=== PATIENT | female | born 1990 | race American Indian/Alaskan Native ===

== ENCOUNTER 2025-05-14 05:40 | Emergency (ER) | payer SELFPAY ==
[2025-05-14] MEDS ORDERED: Sodium Chloride 0.9% 10 ML Syringe FLUSH PRN (06:04)
[2025-05-14] MEDS: Ondansetron 4 MG/2 ML SDV IVPUSH ONE (06:14)
[2025-05-14 06:17] LABS: BASOPHILS ABSOLUTE AUTO 0.0 K/mm3 (0.0-0.2); BASOPHILS PERCENT AUTO 0.5 % (0.0-1.0); EOSINOPHILS ABSOLUTE AUTO 0.1 K/mm3 (0.0-0.4); EOSINOPHILS PERCENT AUTO 1.4 % (0.0-6.0); IMMATURE GRAN ABSOLUTE AUTO 0.01 K/mm3 (0.00-0.05); IMMATURE GRAN PERCENT AUTO 0.2 % (0.0-0.4); LYMPHOCYTES ABSOLUTE AUTO 2.4 K/mm3 (1.0-4.8); LYMPHOCYTES PERCENT AUTO 36.6 % (24.0-44.0); MEAN PLATELET VOLUME 10.2 fl (9.4-12.3); MONOCYTES ABSOLUTE AUTO 0.4 K/mm3 (0.0-0.8); MONOCYTES PERCENT AUTO 6.5 % (0.0-8.0); NEUTROPHILS ABSOLUTE AUTO 3.6 K/mm3 (1.8-7.7); NEUTROPHILS PERCENT AUTO 54.8 % (41.0-71.0); NRBC ABSOLUTE 0.00 (0.00-0.02); NRBC PERCENT 0.0 % (0.0-0.2); PLATELET COUNT,PLT 338 K/mm3 (150-400); RED BLOOD CELL COUNT 4.13 M/mm3 (4.10-5.30); WHITE BLOOD CELL COUNT,WBC 6.61 K/mm3 (3.9-11.3)
[2025-05-14 06:28] LABS: APPEARANCE,URINE SLT CLOUDY (Clear); GLUCOSE,URINE NEGATIVE (Negative); OCCULT BLOOD,URINE NEGATIVE (Negative)
[2025-05-14 06:41] LABS: A/G RATIO 0.8 (1-2); ALANINE AMINOTRANSFERASE,ALT 24.0 U/L (14-59); ASPARTATE AMNIOTRANSFERASE,AST 19.0 U/L (15-37); BILIRUBIN TOTAL 0.3 mg/dL (0.2-1.0); BLOOD UREA NITROGEN,BUN 13.0 mg/dL (7-18); CARBON DIOXIDE,CO2 25.0 mEq/L (21-32); CHLORIDE,CL 103.0 mEq/L (98-107); CREATININE 0.8 mg/dL (0.55-1.02); EST CRCL DRUG DOSING (CG) 87.48 mL/min; ESTIMATED GFR 98.0 mL/min (>60); GLUCOSE RANDOM 90.0 mg/dL (70-99); POTASSIUM,K 3.6 mEq/L (3.5-5.1); PROTEIN TOTAL,TP 7.7 g/dl (6.4-8.2); SODIUM,NA 139.0 mEq/L (136-145)
[2025-05-14] MEDS: Ketorolac 30 MG/ML SDV IVPUSH ONE (07:44)
== END 2025-05-14 07:49 | disposition home or self-care (01) ==
LOC: JD.ED 05:40
DX: K80.10 Calculus of gallbladder with chronic cholecystitis without obstruction (principal)
CPT/HCPCS: 36415; 76705; 80053; 81001; 83690; 84703; 85025; 96361; 96374; 96375; 99284; J1885; J2405; J7030; 99283

== ENCOUNTER 2025-05-19 05:15 | Day surgery (SDC) | payer SELFPAY ==
[2025-05-19] MEDS ORDERED: Sodium Chloride 0.9% 10 ML Syringe FLUSH PRN (05:29)
[2025-05-19] MEDS: Ketorolac 30 MG/ML SDV IVPUSH ONE (05:41)
[2025-05-19 05:44] LABS: BASOPHILS ABSOLUTE AUTO 0.0 K/mm3 (0.0-0.2); BASOPHILS PERCENT AUTO 0.3 % (0.0-1.0); EOSINOPHILS ABSOLUTE AUTO 0.1 K/mm3 (0.0-0.4); EOSINOPHILS PERCENT AUTO 0.4 % (0.0-6.0); IMMATURE GRAN ABSOLUTE AUTO 0.03 K/mm3 (0.00-0.05); IMMATURE GRAN PERCENT AUTO 0.3 % (0.0-0.4); LYMPHOCYTES ABSOLUTE AUTO 1.6 K/mm3 (1.0-4.8); LYMPHOCYTES PERCENT AUTO 14.1 % (24.0-44.0); MEAN PLATELET VOLUME 10.3 fl (9.4-12.3); MONOCYTES ABSOLUTE AUTO 0.7 K/mm3 (0.0-0.8); MONOCYTES PERCENT AUTO 5.9 % (0.0-8.0); NEUTROPHILS ABSOLUTE AUTO 9.1 K/mm3 (1.8-7.7); NEUTROPHILS PERCENT AUTO 79.0 % (41.0-71.0); NRBC ABSOLUTE 0.00 (0.00-0.02); NRBC PERCENT 0.0 % (0.0-0.2); PLATELET COUNT,PLT 298 K/mm3 (150-400); RED BLOOD CELL COUNT 4.10 M/mm3 (4.10-5.30); WHITE BLOOD CELL COUNT,WBC 11.55 K/mm3 (3.9-11.3)
[2025-05-19] MEDS ORDERED: Naloxone 0.4 MG/ML SDV IVPUSH PRN (05:54)
[2025-05-19] MEDS: Ondansetron 4 MG/2 ML SDV IVPUSH ONE (05:57)
[2025-05-19 06:04] LABS: A/G RATIO 0.9 (1-2); ALANINE AMINOTRANSFERASE,ALT 35.0 U/L (14-59); ASPARTATE AMNIOTRANSFERASE,AST 31.0 U/L (15-37); BILIRUBIN TOTAL 0.3 mg/dL (0.2-1.0); BLOOD UREA NITROGEN,BUN 9.0 mg/dL (7-18); CARBON DIOXIDE,CO2 23.0 mEq/L (21-32); CHLORIDE,CL 101.0 mEq/L (98-107); CREATININE 1.0 mg/dL (0.55-1.02); EST CRCL DRUG DOSING (CG) 69.98 mL/min; ESTIMATED GFR 75.0 mL/min (>60); GLUCOSE RANDOM 122.0 mg/dL (70-99); POTASSIUM,K 3.6 mEq/L (3.5-5.1); PROTEIN TOTAL,TP 8.1 g/dl (6.4-8.2); SODIUM,NA 137.0 mEq/L (136-145)
[2025-05-19] MEDS: cefTRIAXone 1 GM in Water For Injection, Sterile 10 ML IVPUSH ONE (07:16)
[2025-05-19] MEDS ORDERED: Midazolam 1 MG/ML 2 ML SDV ONE (12:57)
[2025-05-19] MEDS ORDERED: fentaNYL 250 MCG/5 ML SDV ONE (12:57)
[2025-05-19] MEDS ORDERED: propofoL 500 MG/50 ML 50 ML ONE ×2 (12:58)
[2025-05-19] MEDS ORDERED: Ondansetron 4 MG/2 ML SDV ONE (13:02)
[2025-05-19] MEDS ORDERED: Dexamethasone 4 MG/ML 5 ML MDV ONE (13:02)
[2025-05-19] MEDS ORDERED: Lactated Ringers 1,000 ML ONE (13:12)
[2025-05-19] MEDS ORDERED: dexmedeTOMIDine HCl 200 MCG/2 ML SDV ONE (13:40)
[2025-05-19] MEDS ORDERED: Ketorolac 30 MG/ML SDV ONE (14:09)
[2025-05-19] MEDS: EPINEPHrine 1 MG/ML SDV ONE (14:30)
[2025-05-19 14:39] LABS: APPEARANCE,URINE CLEAR (Clear); GLUCOSE,URINE NEGATIVE (Negative); OCCULT BLOOD,URINE NEGATIVE (Negative)
[2025-05-19] MEDS ORDERED: fentaNYL 100 MCG/2 ML SDV IVPUSH PRN (14:45)
[2025-05-19] MEDS ORDERED: droPERidol 2.5 MG/ML SDV IV PRN (14:45)
[2025-05-19 14:50] LABS: EPITHELIAL CELLS,URINE 0-5 /hpf (0-5)
[2025-05-19] MEDS: Ondansetron 4 MG/2 ML SDV IVPUSH PRN (15:42)
== END 2025-05-19 17:55 | disposition home or self-care (01) ==
LOC: JD.ED 05:15 → JD.SDS 09:45
PROVIDERS: ATTEND Surgery
DX: K80.00 Calculus of gallbladder with acute cholecystitis without obstruction (principal); Z79.899 Other long term (current) drug therapy
CPT/HCPCS: 36415; 47562; 80053; 81001; 85025; J0169; J0665; J0696; J1100; J1885; J2003; J2250; J2405; J2543; J2704; J3010; J7030; J7120; J1171; J3490